=== PATIENT | female | born 1975 | race Caucasian/White ===

== ENCOUNTER 2020-01-07 20:26 | Emergency (ER) | payer OTHER ==
[~2020-01-07] VITALS: Ht 157.5 cm; Wt 111.4 kg
[2020-01-07 20:30] VITALS: BP 133/75
[2020-01-07] MEDS ORDERED: ambien (20:56)
[2020-01-07] MEDS ORDERED: multivitamin (20:56)
[2020-01-07] MEDS ORDERED: ASPI1TAB31 PO (20:56)
[2020-01-07] MEDS ORDERED: zoloft (20:56)
[2020-01-07] MEDS ORDERED: fish oil (20:56)
[2020-01-07] MEDS ORDERED: probiotics (20:56)
--- NOTE | 2020-01-07 21:43 | PHYS DOC ---
Adult General Chief Complaint Chief Complaint: MECHANICAL FALL HPI HPI Patient is a 44 year old male presents for evaluation after accidental fall. Patient states she slipped and heat the back of her head. Patient states she had positive LOC. Associated nausea without vomiting. Patient complains of headache. Review of Systems Review of Systems Constitutional: Denies fever or chills [] Eyes: Denies change in visual acuity, redness, or eye pain [] HENT: Denies nasal congestion or sore throat [] Respiratory: Denies cough or shortness of breath [] Cardiovascular: No additional information not addressed in HPI [] GI: Denies abdominal pain, nausea, vomiting, bloody stools or diarrhea [] : Denies dysuria or hematuria [] Musculoskeletal: Denies back pain or joint pain [] Integument: Denies rash or skin lesions [] Neurologic: Denies , focal weakness or sensory changes [positive headache, positive LOC] Endocrine: Denies polyuria or polydipsia [] All other systems were reviewed and found to be within normal limits, except as documented in this note. Allergies Allergies Allergies Coded Allergies Type Severity Reaction Last Updated Verified No Known Drug Allergies 01/07/20 No Physical Exam Physical Exam Constitutional: Well developed, well nourished, no acute distress, non-toxic appearance. [] HENT: Normocephalic, atraumatic, bilateral external ears normal, oropharynx moist, no oral exudates, nose normal. [] Eyes: PERRLA, EOMI, conjunctiva normal, no discharge. [] Neck: Normal range of motion, no tenderness, supple, no stridor. [] Cardiovascular:Heart rate regular rhythm, no murmur [] Lungs & Thorax: Bilateral breath sounds clear to auscultation [] Abdomen: Bowel sounds normal, soft, no tenderness, no masses, no pulsatile masses. [] Skin: Warm, dry, no erythema, no rash. [] Back: No tenderness, no CVA tenderness. [] Extremities: No tenderness, no cyanosis, no clubbing, ROM intact, no edema. [] Neurologic: Alert and oriented X 3, normal motor function, normal sensory function, no focal deficits noted. [] Psychologic: Affect normal, judgement normal, mood normal. [] EKG EKG [] Course & Med Decision Making Course & Med Decision Making Pertinent Labs and Imaging studies reviewed. (See chart for details) []Patient was evaluated for chief complaint. Workup consisted of CT imaging. CT head reviewed no acute abnormality. Patient's pain was treated with Tylenol#3. Dragon Disclaimer Dragon Disclaimer This electronic medical record was generated, in whole or in part, using a voice recognition dictation system. Departure Departure: Impression: Primary Impression: Head injury Disposition: HOME, SELF-CARE Condition: STABLE Referrals: PCP,UNKNOWN (PCP) Patient Instructions: Head Injury, Adult Scripts Acetaminophen With Codeine (TYLENOL WITH CODEINE #3 TABLET) 1 Each Tablet 1 TAB PO PRN Q4-6HRS PRN for pain MDD 6 Tablet(s), #14 TAB 0 Refills Prov: ANNIE RICHARD DO 01/07/20 ANNIE RICHARD DO Jan 07, 2020 21:43
[2020-01-07] MEDS ORDERED: ACETAMINOPHEN/CODEINE 300/30MG TABLET PO ONE (22:15)
--- NOTE | 2020-01-07 22:15 | RAD ---
Exam: CT head INDICATION: Fall, head injury TECHNIQUE: Sequential axial images through the head were obtained without the administration of IV contrast. Comparisons: None FINDINGS: No focal parenchymal lesion or hemorrhage is identified. There is no midline shift or sulcal effacement. No acute vascular territory infarction is identified. Boateng-white distinction is preserved. The ventricular system is within normal limits without compression hydrocephalus. The basal cisterns are well maintained. The visualized portions of the paranasal sinuses and mastoid air cells are well-pneumatized. No acute fractures. IMPRESSION: No acute intracranial abnormality. Exposure: One or more of the following in the visualized dose reduction techniques were utilized for this examination: 1. Automated exposure control 2. Adjustment of the MA and/or KV according to patient size Use of iterative of reconstructive technique Electronically signed by: Daryl Galan MD (01/07/2020 10:12 PM) [id number]
[2020-01-07] MEDS ORDERED: ACET-704 PO (22:35)
== END 2020-01-07 22:41 | disposition home or self-care (01) ==
LOC: ER 20:26
DX: S09.90XA Unspecified injury of head, initial encounter (principal); W01.198A Fall on same level from slipping, tripping and stumbling with subsequent striking against other object, initial encounter; Y93.89 Activity, other specified; Y92.89 Other specified places as the place of occurrence of the external cause; Y99.8 Other external cause status
CPT/HCPCS: 70450; 99284

== ENCOUNTER 2020-01-12 13:21 | Emergency (ER) | payer OTHER ==
[~2020-01-12] VITALS: Ht 157.5 cm; Wt 110.6 kg
[~2020-01-12 13:21] MED LIST: ACET-704 PO; ASPI1TAB31 PO; ambien; fish oil; multivitamin; probiotics; zoloft
[2020-01-12] MEDS ORDERED: IV NORMAL SALINE 1,000ML 1,000 ML IV ONE (14:00)
[2020-01-12] MEDS ORDERED: IOHEXOL 300 MG/ML 75 ML VIAL. IV ONE (14:00)
--- NOTE | 2020-01-12 14:20 | PHYS DOC ---
Past History Past Medical History: Depression, Migraines Past Surgical History: Other Additional Past Surgical Histo: lt lung lobectomy--benign tumor Alcohol Use: None Adult General Chief Complaint Chief Complaint: ABDOMINAL PAIN HPI HPI Patient is a 44-year-old female who presents to the ED with right lower quadrant abdominal pain. She states the pain began this morning at roughly 0200 when she was turning over in bed. She states that she felt "pop" followed by sharp pain. She states that the pain is pinpoint does not radiate. She denies any fever, chills, nausea, vomiting, constipation, or diarrhea. She has been on Motrin since a fall on January 07 but stated that she had not taken any this morning. She states that the pain is worsened by engaging her abdominal coughing or with movement. She denies any possibility of , vaginal bleeding, or vaginal discharge. She currently rates the pain as a 2 out of 10 at rest but states it's a 9 out of 10 when she uses her abdominal muscles. Review of Systems Review of Systems Constitutional: Denies fever or chills Respiratory: Denies cough or shortness of breath Cardiovascular: Denies chest pain or palpitations GI: Reports abdominal pain; denies nausea or vomiting : Denies dysuria or hematuria Musculoskeletal: Denies back pain or joint pain Complete systems were reviewed and found to be within normal limits, except as documented in this note. Family History Family History No pertinent family history Current Medications Current Medications Current Medications Medications (Trade) Dose Ordered Sig/Andrei Start Time Stop Time Status Last Admin Dose Admin Iohexol (Omnipaque 300 Mg/ml) 75 ml 1X ONCE 01/12/20 14:00 01/12/20 14:03 DC Sodium Chloride 1,000 ml @ 1,000 mls/hr 1X ONCE 01/12/20 14:00 01/12/20 14:59 Allergies Allergies Allergies Coded Allergies Type Severity Reaction Last Updated Verified No Known Drug Allergies 01/07/20 No Physical Exam Physical Exam Constitutional: Well developed, well nourished, no acute distress, non-toxic appearance HENT: Normocephalic, atraumatic, oropharynx moist, nose normal Eyes: Conjunctiva normal, no discharge Neck: Normal range of motion, no tenderness, supple, no meningeal signs Cardiovascular: Heart rate normal and regular rhythm Lungs & Thorax: Bilateral breath sounds clear to auscultation, no respiratory distress Abdomen: Soft, RLQ tenderness, no guarding/rebound tenderness/distention Skin: Warm, dry, no erythema, no rash Back: No tenderness, no CVA tenderness Extremities: No tenderness, ROM intact, no edema Neurologic: Alert and oriented X 3, no focal deficits noted Psychologic: Affect normal, judgement normal Current Patient Data Vital Signs Vital Signs Date Time Temp Pulse Resp B/P (MAP) Pulse Ox O2 Delivery O2 Flow Rate FiO2 01/12/20 13:40 97.9 87 20 143/71 (95) 100 Room Air EKG EKG [] Radiology/Procedures Radiology/Procedures PROCEDURE: CT ABD PELV W/ IV CONTRST ONLY EXAM: Abdomen and pelvis CT with intravenous contrast. HISTORY: Pain. TECHNIQUE: Computed tomographic images of the abdomen and pelvis were obtained following the administration of intravenous contrast. Multiplanar reformatting was performed. *One or more of the following individualized dose reduction techniques were utilized for this examination: 1. Automated exposure control. 2. Adjustment of the mA and/or kV according to patient size. 3. Use of iterative reconstruction technique. COMPARISON: None. FINDINGS: Evaluation of the lower thorax demonstrates postoperative change at the left lung base and left basilar atelectasis or scarring. The heart is normal in size. No hepatic lesion is seen. There is a large stone within the gallbladder. The pancreas, spleen and adrenal glands are unremarkable. There is and ill-defined 1.5 cm hypodense lesion within the anterior mid zone of the right kidney, likely a cyst. There is no appendicitis. There is no bowel obstruction. No abnormal bowel wall thickening is seen. The urinary bladder, uterus and ovaries are unremarkable. The aorta is normal in caliber. There is no lymphadenopathy. There is no suspicious osseous lesion. IMPRESSION: 1. Cholelithiasis. 2. Suspected small right renal cyst, difficult to characterize given its size. Electronically signed by: Karoline Medrano MD (01/12/2020 2:37 PM) [facility] [place] Course & Med Decision Making Course & Med Decision Making Pertinent Labs and Imaging studies reviewed. (See chart for details) Patient is a 44-year-old female who presents to the ED with right lower quadrant abdominal pain. She states the pain began this morning at roughly 0200 when she was turning over in bed. She states that she felt "pop" followed by sharp pain. She states that the pain is pinpoint does not radiate. She denies any fever, chills, nausea, vomiting, constipation, or diarrhea. She has been on Motrin since a fall on January 07 but stated that she had not taken any this morning. She states that the pain is worsened by engaging her abdominal coughing or with movement. She denies any possibility of , vaginal bleeding, or vaginal discharge. She currently rates the pain as a 2 out of 10 at rest but states it's a 9 out of 10 when she uses her abdominal muscles. In the ED she was worked up for emergent causes of acute abdominal pain versus muscle strain versus contusion, a CT abdomen was ordered and showed no acute abnormality with exception for cholelithiasis. Patient nontender to RUQ. Appropriate labs were ordered and posted to chart. Symptomatic treatment provided. Patient with interval improvement. Patient stable for discharge home with outpatient follow-up with PCP/General surgery. Referral for Gen Surg provided. Discussed findings and plan with patient and family, who acknowledge understanding and agreement. Dragon Disclaimer Dragon Disclaimer This electronic medical record was generated, in whole or in part, using a voice recognition dictation system. Departure Departure: Impression: Primary Impression: Abdominal pain Additional Impression: Cholelithiasis Disposition: HOME, SELF-CARE Condition: STABLE Referrals: PCP,HARRY (PCP) EYAL ONEILL MD Patient Instructions: Abdominal Pain (Nonspecific), Cholelithiasis, [id number] Additional Instructions: Use over the counter Tylenol and/or Ibuprofen as needed. ICE area 20 min on and then leave off for next 20 min. Repeat as needed for next few days. Scripts Orphenadrine Citrate (ORPHENADRINE CITRATE) 100 Mg Tablet.er 1 TAB PO BID PRN for MUSCLE PAIN, #14 TAB 0 Refills Prov: VIVIAN HOBBS DO 01/12/20 Problem Qualifiers Primary Impression: Abdominal pain Abdominal location: right lower quadrant Qualified Codes: R10.31 - Right lower quadrant pain Additional Impression: Cholelithiasis Cholelithiasis location: gallbladder Cholecystitis presence: without cholecystitis Biliary obstruction: without biliary obstruction Qualified Codes: K80.20 - Calculus of gallbladder without cholecystitis without obstruction VIVIAN HOBBS DO Jan 12, 2020 14:20
[2020-01-12 14:23] LABS: U PREG PATIENT NEGATIVE (NEG)
--- NOTE | 2020-01-12 14:40 | RAD ---
EXAM: Abdomen and pelvis CT with intravenous contrast. HISTORY: Pain. TECHNIQUE: Computed tomographic images of the abdomen and pelvis were obtained following the administration of intravenous contrast. Multiplanar reformatting was performed. *One or more of the following individualized dose reduction techniques were utilized for this examination: 1. Automated exposure control. 2. Adjustment of the mA and/or kV according to patient size. 3. Use of iterative reconstruction technique. COMPARISON: None. FINDINGS: Evaluation of the lower thorax demonstrates postoperative change at the left lung base and left basilar atelectasis or scarring. The heart is normal in size. No hepatic lesion is seen. There is a large stone within the gallbladder. The pancreas, spleen and adrenal glands are unremarkable. There is and ill-defined 1.5 cm hypodense lesion within the anterior mid zone of the right kidney, likely a cyst. There is no appendicitis. There is no bowel obstruction. No abnormal bowel wall thickening is seen. The urinary bladder, uterus and ovaries are unremarkable. The aorta is normal in caliber. There is no lymphadenopathy. There is no suspicious osseous lesion. IMPRESSION: 1. Cholelithiasis. 2. Suspected small right renal cyst, difficult to characterize given its size. Electronically signed by: Karoline Medrano MD (01/12/2020 2:37 PM) [facility] [place]
[2020-01-12 14:42] LABS: BACTERIA,URINE 0 /HPF (0-FEW); BILIRUBIN,URINE NEG (NEG); CLARITY,URINE HAZY; COLOR,URINE YELLOW; GLUCOSE,URINE NEG (NEG); NITRITE,URINE NEG (NEG); RBC,URINE 0 /HPF (0-2); SQUAMOUS EPITHELIAL CELL,UR FEW /LPF; UROBILINOGEN,URINE 0.2 mg/dL (0.2 mg/dL); WBC,URINE OCC /HPF (0-4)
[2020-01-12 14:43] LABS: BASO % 1 % (0-3); EOS # 0.1 x10^3/uL (0.0-0.7); EOS % 1 % (0-3); HEMATOCRIT 41.2 % (36.0-47.0); HEMOGLOBIN 13.5 g/dL (12.0-15.5); LYMPH # 1.6 x10^3/uL (1.0-4.8); LYMPH % 27 % (24-48); MEAN CORPUSCULAR HEMOGLOBIN 32 pg (25-35); MEAN CORPUSCULAR HGB CONC 33 g/dL (31-37); MEAN CORPUSCULAR VOLUME 97 fL (79-100); MONO # 0.4 x10^3/uL (0.0-1.1); MONO % 8 % (0-9); NEUT # 3.7 x10^3uL (1.8-7.7); NEUT % 64 % (31-73); PLATELET COUNT 204 x10^3/uL (140-400); RED BLOOD COUNT 4.26 x10^6/uL (3.50-5.40); RED CELL DISTRIBUTION WIDTH 12.9 % (11.5-14.5); WHITE BLOOD COUNT 5.8 x10^3/uL (4.0-11.0)
[2020-01-12 14:51] LABS: CALCIUM 8.4 mg/dL (8.5-10.1); CREATININE 0.7 mg/dL (0.6-1.0); GFR 91.8; POTASSIUM 3.8 mmol/L (3.5-5.1)
[2020-01-12 15:01] LABS: ALBUMIN 3.5 g/dL (3.4-5.0); ALBUMIN/GLOBULIN RATIO 1.1 (1.0-1.7); TOTAL BILIRUBIN 0.2 mg/dL (0.2-1.0); TOTAL PROTEIN 6.8 g/dL (6.4-8.2)
[2020-01-12 15:30] VITALS: BP 125/68
[2020-01-12] MEDS ORDERED: ORPH-16 PO (15:38)
== END 2020-01-12 15:40 | disposition home or self-care (01) ==
LOC: ER 13:21
DX: K80.20 Calculus of gallbladder without cholecystitis without obstruction (principal)
CPT/HCPCS: 36415; 74177; 80053; 81001; 81025; 83690; 83735; 85025; 99285; Q9967; J7030